=== PATIENT | male | born 1955 | race African-American/Black ===

== ENCOUNTER 2017-08-30 14:17 | Inpatient (IN) | payer OTHER ==
[~2017-08-30] VITALS: Ht 182.9 cm; Wt 103.6 kg
--- NOTE | ~2017-08-30 | EKG ---
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: Thuy NORIEGA : 1955 Requested By: Napoleon Rice Order Number: [id number] MD: Soham Hill Measurements Intervals [place] Rate: 86 P: 49 TX: 226 QRS: -34 QRSD: 109 T: 89 QT: 420 QTc: 503 Interpretive Statements Sinus rhythm Multiple ventricular premature complexes Leftward axis Prolonged TX interval LVH with secondary repolarization abnormality Prolonged QT interval Compared to ECG 08/31/2017 06:50:18 Ventricular premature complex(es) now present Electronically Signed On 08-31-2017 12:29:00 CDT by Soham Hill [email or web address] <ELECTRONICALLY SIGNED> By: Sohma Hill MD, [facility] 08/31/17 1229 1059 1059 Soham Hill MD, [facility] /EPI
--- NOTE | ~2017-08-30 | 2DMMODE ---
[facility] [address] [place] [address] 2 D/M-MODE ECHOCARDIOGRAM Name: NICOLE HAND Room #: 360-P [facility] IN [facility]#: [id number] Admission: 08/30/17 Attend Phys: Madelin Manrique Discharge: Date of : 51 Date of Service: 08/31/17 0918 Report #: [id number] THIS REPORT FOR: //name// APPROVED REPORT Study performed: 08/31/2017 08:01:24 EXAM: Comprehensive 2D, Doppler, and color-flow Echocardiogram Patient Location: Bedside Room #: 360 Status: routine BSA: 2.23 HR: 66 bpm BP: 156/95 mmHg Rhythm: NSR/arrhthmia Other Information Study Quality: Adequate Indications Short of breath. Hx: HTN, HLP, TIA 2D Dimensions RVDd: 37.18 mm LVEF(%): 58.03 (>50%) IVSd: 12.45 (7-11mm) LVOT Diam: 20.70 (18-24mm) LVDd: 47.47 mm PWd: 11.80 (7-11mm) Ascending Ao: 35.20 (22-36mm) LVDs: 32.95 (25-40mm) Aortic Root: 32.02 mm Hernandes's LVEF: 58.03 % Volumes Left Atrial Volume (Systole) Single Plane 4CH: 77.42 mL Single Plane 2CH: 85.45 mL LA ESV Index: 40.00 mL/m2 Aortic Valve AoV Peak Peter.: 1.75 m/s AO Peak Gr.: 12.25 mmHg LVOT Max P.85 mmHg LVOT Max V: 1.31 m/s GIL Vmax: 2.51 cm2 Mitral Valve E/A Ratio: 118.0 MV E Max Peter.: 1.18 m/s [facility] [place] [address] 2 D/M-MODE ECHOCARDIOGRAM Name: NICOLE HAND Room #: 360-P [facility] IN [facility]#: [id number] Admission: 08/30/17 Attend Phys: Madelin Manrique Discharge: Date of : 51 Date of Service: 08/31/17 0918 Report #: [id number] MV A Peter.: 0.01 m/s IVRT: 96.89 ms Pulmonary Valve PV Peak Peter.: 1.09 m/s PV Peak Gr.: 4.71 mmHg Pulmonary Vein P Vein S: 0.56 m/s P Vein A: 0.29 m/s P Vein D: 0.38 m/s P Vein A Dur.: 143.0 msec P Vein S/D Ratio: 1.47 Tricuspid Valve TR Peak Peter.: 2.36 m/s RAP Estimate: 5.00 mmHg TR Peak Gr.: 22.32 mmHg PA Pressure: 27.00 mmHg Left Ventricle The left ventricle is normal size. There is normal LV segmental wall motion. Mild concentric left ventricular hypertrophy. Left ventricular systolic function is normal. LVEF is 55-60%. Mild diastolic dysfunction is present (impaired relaxation pattern). Right Ventricle The right ventricle is normal size. The right ventricular systolic function is normal. Atria Left atrium is mildly dilated. Right atrium is mildly dilated. Aortic Valve The aortic valve is normal in structure. Mild aortic regurgitation. There is no aortic valvular stenosis. Mitral Valve The mitral valve is normal in structure. Mild to moderate mitral regurgitation. Tricuspid Valve The tricuspid valve is normal in structure. Mild tricuspid regurgitation. Estimated PAP of 25-30mmHg. Pulmonic Valve The pulmonary valve is normal in structure. Trace pulmonic regurgitation. [address] [address] 2 D/M-MODE ECHOCARDIOGRAM Name: NICOLE HAND Room #: 360-P [facility] IN [facility]#: [id number] Admission: 08/30/17 Attend Phys: Madelin Manrique Discharge: Date of : 51 Date of Service: 08/31/17 0918 Report #: [id number] Great Vessels The aortic root is normal in size. The ascending aorta is normal in size. IVC is normal in size and collapses >50% with inspiration. Pericardium There is no pericardial effusion. <Conclusion> The left ventricle is normal size. Mild concentric left ventricular hypertrophy. LVEF is 55-60%. Mild diastolic dysfunction is present (impaired relaxation pattern). The right ventricle is normal size. Left atrium is mildly dilated. Right atrium is mildly dilated. Mild aortic regurgitation. Mild to moderate mitral regurgitation. Mild tricuspid regurgitation. Estimated PAP of 25-30mmHg. The aortic root is normal in size. There is no pericardial effusion. <ELECTRONICALLY SIGNED> By: Jim Dunn MD, FACC 08/31/17917 7 7 Jim Dunn MD, FACC /INF
--- NOTE | ~2017-08-30 | EKG ---
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 : 1955 Requested By: Danial Walker Order Number: [id number] MD: Soham Hill Measurements Intervals [place] Rate: 69 P: 38 ND: 220 QRS: -32 QRSD: 102 T: 71 QT: 448 QTc: 480 Interpretive Statements Sinus rhythm Prolonged ND interval Left ventricular hypertrophy Anterior Q waves, possibly due to LVH Baseline wander in lead(s) V6 Compared to ECG 09/07/2010 15:49:21 Supraventricular complexes are no longer present Electronically Signed On 08-31-2017 8:40:53 CDT by Soham Hill [email or web address] <ELECTRONICALLY SIGNED> By: Soham Hill MD, [facility] 08/31/17 0840 0650 0650 Soham Hill MD, [facility] /EPI
--- NOTE | ~2017-08-30 | HC ---
[facility] [place] [address] CONSULTATION Name: NICOLE HAND Kee Room #: 360-P [facility]..#: [id number] Admission: 08/30/17 Attend Phys: Silvano Warner Discharge: 09/01/17 Date of : 51 Report #: [id number] THIS REPORT FOR: //name// CC: Kal Warner DATE OF SERVICE: 08/31/2017 NEPHROLOGY CONSULTATION REASON FOR CONSULTATION: End-stage renal disease. HISTORY OF PRESENT ILLNESS: A 61-year-old patient admitted with shortness of breath, long-term and heavy smoker, is a chronic dialysis patient. He dialyzed yesterday at [facility] unit. He has been dialyzing comfortably over the last 3 years at 2 different [facility] units. He has no trouble attending target weight and only puts on about 2-1/2 kilos between treatments. He has no history of congestive heart failure, has possibly had some "silent myocardial infarctions" in the past. 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 According to the patient, he has been cancer free for the last 3 years. FAMILY HISTORY: Positive for diabetes, hypertension. No renal disease. SOCIAL HISTORY: Former heavy smoker and he quit. REVIEW OF SYSTEMS: GENERAL: He has been feeling okay. EYES: Vision is fine. ENT: Hearing okay, swallows okay. Denies mouth ulcers. ENDOCRINE: No diabetes or thyroid disease. RESPIRATORY: Easily short winded. No cough, hemoptysis, or pleuritic pain. CARDIAC: No angina, swelling, or fluid retention. GASTROINTESTINAL: No nausea, vomiting, diarrhea or bloody stools. GENITOURINARY: No dysuria or hematuria. NEUROLOGIC: No seizures or peripheral neuropathy or syncope. He has had previous CVA with mild right hemiparesis residual. CURRENT MEDICATIONS: List includes atorvastatin 40 mg daily, Pulmicort inhaler, BuSpar 10 mg at bedtime, Fosrenol 2000 mg with meals t.i.d., omeprazole 20 mg daily, Flomax 0.4 mg daily, propranolol 40 mg at bedtime, Effexor 225 mg b.i.d., Seroquel 100 mg at bedtime, aspirin 81 mg daily, Nephro-Helga [address] [address] CONSULTATION Name: YAZANNICOLE Room #: 360-P [facility]#: [id number] Admission: 08/30/17 Attend Phys: Silvano Warner Discharge: 09/01/17 Date of : 51 Report #: [id number] PHYSICAL EXAMINATION: VITAL SIGNS: Reasonably well-appearing, relatively lucid gentleman who appears completely comfortable. He is not on any oxygen. SKIN: Unremarkable. SKELETAL: Well developed, well nourished. HEENT: Extraocular movements are full. Vision intact. No scleral icterus. Hearing intact. Mucous membranes moist. Tongue and buccal mucosa are benign. NECK: Supple, no bruits or lymphadenopathy. CHEST: Completely clear to auscultation. HEART: Regular. ABDOMEN: Soft, nontender. EXTREMITIES: Show no edema. Pulses intact. LABORATORY DATA: Sodium 136, potassium 3.5, chloride 95, bicarbonate 32, BUN 32, creatinine 7.9. ASSESSMENT AND PLAN: 1. Chronic kidney disease. The patient has end-stage renal failure from hypertension, he has also had surgery on his kidneys. He dialyzes 3 times weekly, dialysis has been arranged for tomorrow with appropriate ultrafiltration. 2. Chronic obstructive pulmonary disease, former heavy smoker, easily winded. 3. History of renal cancers. 4. History of gastrointestinal cancer. 5. History of hypertension. 6. History of cerebrovascular accident with mild right hemiparesis. <ELECTRONICALLY SIGNED> By: Jim Henley MD 09/06/17 1149 0910 1206 Jim Henley MD /nt
[~2017-08-30 14:17] MED LIST: ASPIR 8181 MG PO; BUSPIRONE HCL10 MG PO; CALAN; CARDURA; CLONAZEPAM 1 MG1 M1 PO; DICYCLOMINE HCL20 MG PO; FLOMAX0.4 MG PO; FOSRENOL1000 MG PO; FUROSEMIDE 40 M40 MG PO; HCTZ; LIDODERM 5%1 PATC1 TOP; LISINOPRIL; NEPHRO-VITE TA0.8 MG PO; NORCO 5-325 TA1 EACH PO; OMEPRAZOLE40 MG PO; POTASSIUM CHLO10 ME1; PROPRANOLOL 1010 MG PO; RENVELA800 MG PO; SEROQUEL 50 MG50 MG PO; VENLAFAXIN75 MG/1 T2 PO; ZOCOR; ZOCOR 10 MG TAB10 M1 PO
[2017-08-30 15:30] VITALS: BP 156/96
[2017-08-30 17:05] LABS: ABSOLUTE NEUTROPHILS 3.2 thou/uL (1.4-8.2); BASOPHILS 1.1 % (0.0-2.0); EOSINOPHILS 5.8 % (0.0-3.0); HEMATOCRIT 34.8 % (42.0-52.0); HEMOGLOBIN 11.2 gm/dL (14.0-18.0); LYMPHOCYTES 25.4 % (24.0-44.0); MCHC 32.2 g/dL (28.0-37.0); MONOCYTES 10.4 % (1.0-8.0); PLATELET COUNT 224 thou/uL (150-400); POLYS 57.3 % (36.0-66.0); RBC 3.87 mil/uL (4.50-6.00); RDW 14.4 % (10.5-14.5); WBC 5.6 thou/uL (4.0-11.0)
[2017-08-30 17:19] LABS: CALCIUM 9.4 mg/dL (8.5-10.1); CREATININE 7.9 mg/dL (0.7-1.3); MAGNESIUM 2.1 mg/dL (1.8-2.4); POTASSIUM 3.5 mmol/L (3.5-5.1); TOTAL BILIRUBIN 0.5 mg/dL (<0.1-1.0); TOTAL PROTEIN 8.3 g/dL (6.4-8.2)
[2017-08-30 20:40] VITALS: BP 139/87
[2017-08-30] MEDS ORDERED: RESTORIL30 MG PO (21:33)
[2017-08-30] MEDS ORDERED: CLONAZEPAM 1 MG1 M1 PO (21:35)
[2017-08-30] MEDS ORDERED: ATORVASTATIN CA40 MG PO (21:44)
[2017-08-30 23:40] VITALS: BP 141/96
[2017-08-31 05:45] VITALS: BP 156/95
[2017-08-31 08:30] VITALS: BP 151/97
[2017-08-31 12:50] VITALS: BP 150/88
[2017-08-31 19:30] VITALS: BP 130/90
[2017-09-01 05:48] VITALS: BP 121/80
[2017-09-01 06:41] LABS: ABSOLUTE NEUTROPHILS 10.7 thou/uL (1.4-8.2); BASOPHILS 0.4 % (0.0-2.0); EOSINOPHILS 0.1 % (0.0-3.0); HEMATOCRIT 34.3 % (42.0-52.0); LYMPHOCYTES 8.7 % (24.0-44.0); MCH 28.8 pg (26.0-34.0); MCV 90.1 fL (80.0-100.0); MONOCYTES 4.6 % (1.0-8.0); PLATELET COUNT 232 thou/uL (150-400); POLYS 86.2 % (36.0-66.0); RDW 14.9 % (10.5-14.5); WBC 12.5 thou/uL (4.0-11.0)
[2017-09-01 06:55] LABS: CALCIUM 9.4 mg/dL (8.5-10.1); POTASSIUM 4.1 mmol/L (3.5-5.1)
[2017-09-01 06:57] LABS: CREATININE 12.1 mg/dL (0.7-1.3)
[2017-09-01] MEDS ORDERED: DOXYCYCLINE HYC50 MG PO (09:16)
[2017-09-01] MEDS ORDERED: PREDNISONE 10 M10 MG PO (09:17)
[2017-09-01 12:19] VITALS: BP 134/85
[2017-09-01 12:34] LABS: BE(vivo) 1.8 mmol/L (-2 to +3); HCO3 26.1 mmol/L (22.0-26.0); PCO2 39.6 mmHg (35.0-45.0); PO2 89.2 mmHg (80.0-100.0); pH 7.437 (7.360-7.450); sO2 97.1 % (92.0-98.0)
[2017-09-01 15:30] VITALS: BP 130/77
[2017-09-01 17:12] VITALS: BP 130/77
[2017-09-01 17:16] VITALS: BP 130/77
== END 2017-09-01 18:03 | disposition home or self-care (01) | DRG 291 ==
LOC: RAD 14:17 → EDSTATUS 14:53 → 3W 14:55 → ENTRNSPT 09-01 17:37 → 3W 09-01 18:03
PROVIDERS: Hospitalist; Nurse Practitioner
DX: I13.2 Hypertensive heart and chronic kidney disease with heart failure and with stage 5 chronic kidney disease, or end stage renal disease (principal); N18.6 End stage renal disease; I50.23 Acute on chronic systolic (congestive) heart failure; E43 Unspecified severe protein-calorie malnutrition; J44.1 Chronic obstructive pulmonary disease with (acute) exacerbation; I69.951 Hemiplegia and hemiparesis following unspecified cerebrovascular disease affecting right dominant side; F32.9 Major depressive disorder, single episode, unspecified; K21.9 Gastro-esophageal reflux disease without esophagitis; N40.0 Benign prostatic hyperplasia without lower urinary tract symptoms; E03.9 Hypothyroidism, unspecified; E78.5 Hyperlipidemia, unspecified; G47.33 Obstructive sleep apnea (adult) (pediatric); Z88.0 Allergy status to penicillin; Z85.528 Personal history of other malignant neoplasm of kidney; Z83.3 Family history of diabetes mellitus; Z82.49 Family history of ischemic heart disease and other diseases of the circulatory system; Z87.891 Personal history of nicotine dependence; Z90.49 Acquired absence of other specified parts of digestive tract; Z85.038 Personal history of other malignant neoplasm of large intestine; Z79.899 Other long term (current) drug therapy; Z79.82 Long term (current) use of aspirin; Z68.31 Body mass index [BMI] 31.0-31.9, adult; Z99.2 Dependence on renal dialysis
CPT/HCPCS: 10879; 32100

== ENCOUNTER → 2018-08-16 | Outpatient (CLI) | payer OTHER ==
[~2018-08-16] MED LIST changes: +ATORVASTATIN CA40 MG PO; +DOXYCYCLINE HYC50 MG PO; +PREDNISONE 10 M10 MG PO; +RESTORIL30 MG PO
== END ==
LOC: RAD 13:24
DX: J98.4 Other disorders of lung (principal); R06.02 Shortness of breath; Z88.0 Allergy status to penicillin

== ENCOUNTER → 2020-11-26 | Outpatient (CLI) | payer OTHER | LOC: RAD 07:51 | PROVIDERS: ATTEND Internal Medicine | DX: J98.4 Other disorders of lung (principal); I51.7 Cardiomegaly ==